=== PATIENT | female | born 1955 | race Caucasian/White ===

== ENCOUNTER 2020-06-10 10:26 | Emergency (ER) | payer OTHER ==
--- NOTE | 2020-06-10 10:44 | EDM.PDOC ---
ED HPI GENERAL MEDICAL PROBLEM - General Chief Complaint: Back Pain or Injury Stated Complaint: BACK PAIN Time Seen by Provider: 06/10/20 10:44 - History of Present Illness INITIAL COMMENTS - FREE TEXT/NARRATIVE: 65-year-old female presents the emergency room with back pain and some abdominal fullness. Patient did this on Sunday she denies any repetitive lifting or heavy lifting injuries or any potential trauma. The patient was seen in the [facility] had a urinalysis that was probably unremarkable as she is not having any symptoms but had a few bacteria trace leukocyte Estrace. She had a CBC that was normal she had a CAT scan of her abdomen because she has a history of diverticulosis and has had diverticulitis in the past. The CAT scan was done without contrast but did not show any diverticulitis did show diverticulosis. And also noted a moderate stool pattern. Patient states she is having some problems with constipation she is had firm stools lately and this morning could only pass a few gaston. Bilateral Lower Back Pain Score (Numeric/FACES): 4 - Related Data Allergies Allergy/AdvReac Type Severity Reaction Status Date / Time cefazolin Allergy Severe Hypotension Verified 06/10/20 10:42 Home Meds: Home Meds Multivitamin [Multivitamins] 1 each PO DAILY 02/15/16 [History] Ciprofloxacin [Ciprofloxacin HCl] 500 mg PO BID 06/10/20 [History] Gabapentin [Neurontin] 300 mg PO TID 06/10/20 [History] amLODIPine [Norvasc] 5 mg PO DAILY 06/10/20 [History] hydroCHLOROthiazide [Hydrochlorothiazide] 25 mg PO DAILY 06/10/20 [History] metroNIDAZOLE [Flagyl] 500 mg PO TID 06/10/20 [History] Past Medical History Respiratory History: Reports: Sleep Apnea Gastrointestinal History: Reports: Other (See Below) Other Gastrointestinal History: diverticulitis, hematochezia Genitourinary History: Reports: Other (See Below) Other Genitourinary History: cystoscopy with uretheral stents Other [employer] History: atrophic vaginitis, R breast cyst, dense breast tissue, R ovary benign neoplasm, uterine fibroid, breast biopsy, R ovary removed Musculoskeletal History: Reports: Neck Pain, Chronic Neurological History: Reports: Other (See Below) Other Neuro History: near syncope Psychiatric History: Reports: Other (See Below) Other Psychiatric History: insomnia - Past Surgical History HEENT Surgical History: Reports: Tonsillectomy GI Surgical History: Reports: Appendectomy, Colonoscopy Female Surgical History: Reports: Hysterectomy ED ROS GENERAL - Review of Systems Review Of Systems: See Below Constitutional: Reports: No Symptoms HEENT: Reports: No Symptoms Respiratory: Reports: No Symptoms Cardiovascular: Reports: No Symptoms GI/Abdominal: Reports: Abdominal Pain, Constipation. Denies: Diarrhea, Nausea, Vomiting : Reports: No Symptoms Musculoskeletal: Reports: No Symptoms Skin: Reports: No Symptoms Neurological: Reports: No Symptoms ED EXAM,LOWER BACK PAIN/INJURY - Physical Exam Exam: See Below Exam Limited By: No Limitations General Appearance: Alert, No Apparent Distress Head: Atraumatic, Normocephalic Neck: Normal Inspection, Supple, Non-Tender, Full Range of Motion Respiratory/Chest: No Respiratory Distress, Lungs Clear, Normal Breath Sounds Cardiovascular: Regular Rate, Rhythm, No Edema, No Murmur GI/Abdominal: Normal Bowel Sounds, Soft, Tender (Vague fullness no specific tenderness no rigidity rebound or guarding) Back Exam: Normal Inspection. No: CVA Tenderness (L), CVA Tenderness (R) Course - Vital Signs Last Recorded V/S: Last Vital Signs Temp 35.8 C L 06/10/20 10:30 Pulse 88 06/10/20 11:30 Resp 18 06/10/20 11:30 BP 141/98 H 06/10/20 11:30 Pulse Ox 96 06/10/20 11:30 - Orders/Labs/Meds Orders: Active Orders 24 hr Category Date Time Status KUB [Abdomen 1V Flat] [CR] Stat Exams 06/10/20 10:56 Taken - Re-Assessments/Exams Free Text/Narrative Re-Assessment/Exam: 06/10/20 11:42 I repeated plain films of her abdomen that show a fair accumulation of stool it is not striking. I discussed the situation with the patient given that she has had labs and a CT yesterday albeit without contrast, she would like to pursue conservative options. I discussed checking more lab work and potentially another CAT scan with contrast in case this is an early diverticulitis and she would like to hold off on this for now she is in agreement to trying a bottle of mag citrate to see if this moves things through. And she absolutely agrees to return to the emergency room in 24 hours if not better sooner if getting worse. We will will have her pickle pumper 2 bottles of mag citrate at the pharmacy drink 1 when she gets home repeat in 6 hours if not getting the desired effect. Departure - Departure Time of Disposition: 11:44 Disposition: Home, Self-Care 01 Clinical Impression: Abdominal pain of unknown etiology, Constipation - Discharge Information Referrals: Susan Bland MD [Primary Care Provider] - Forms: ED Department Discharge Additional Instructions: Return to the emergency room with any questions problems or worsening symptoms. If you are not better in 24 hours return to the emergency room for reevaluation. Go to your pharmacy and get 2 bottles of magnesium citrate. This works better if it is chilled or served over ice drink 1 bottle as soon as you get home repeat in 6 hours if you do not get the desired effect. If you do well with the above-mentioned therapy. Follow-up with your regular physician for recheck. And mention that you possibly had some calcifications thought to be gallstones in your gallbladder and see if a gallbladder ultrasound would be worth checking. Sepsis Event Note (ED) - Evaluation Sepsis Screening Result: No Definite Risk - Focused Exam Vital Signs: Vital Signs Temp Pulse Resp BP Pulse Ox 06/10/20 11:30 88 18 141/98 H 96 06/10/20 10:30 35.8 C L 80 16 144/82 H 95 - My Orders Last 24 Hours: My Active Orders 06/10/20 10:56 KUB [Abdomen 1V Flat] [CR] Stat - Assessment/Plan Last 24 Hours: My Active Orders 06/10/20 10:56 KUB [Abdomen 1V Flat] [CR] Stat
[2020-06-10 11:31] VITALS: BP 141/98; PULSE 88
--- NOTE | 2020-06-10 11:47 | CR ---
Abdomen: Supine view of the abdomen was obtained. Comparison: Prior CT abdomen and pelvis study of 02/25/16. Calcifications are noted within the upper right abdomen most likely due to gallstones. Bowel gas pattern is normal. Scoliosis is noted within the spine. No discrete soft tissue abnormality is appreciated. Impression: 1. Calcifications within the right upper abdomen most likely due to gallstones. 2. Mild scoliosis. No other acute finding is appreciated. Diagnostic code #3 This report was dictated in MDT
== END 2020-06-10 12:06 | disposition home or self-care (01) ==
LOC: JD.ED 10:26
DX: K59.00 Constipation, unspecified (principal); Z88.1 Allergy status to other antibiotic agents; Z79.899 Other long term (current) drug therapy
CPT/HCPCS: 74018; 74018-26; 99282; 99284

== ENCOUNTER 2025-05-20 10:06 | Day surgery (SDC) | payer MEDICARE, OTHER ==
[~2025-05-20 10:06] MED LIST: Sodium Chloride 0.9% 10 ML Syringe FLUSH PRN; Sodium Chloride 0.9% 10 ML Syringe FLUSH SCH
[2025-05-20] MEDS: Lactated Ringers 1,000 ML IV SCH (10:30)
[2025-05-20] MEDS ORDERED: propofoL 500 MG/50 ML 50 ML ONE (11:04)
[2025-05-20] MEDS ORDERED: fentaNYL 100 MCG/2 ML SDV ONE (11:39)
[2025-05-20] MEDS ORDERED: Propofol 200 MG/20 ML SDV ONE (11:43)
[2025-05-20 13:01] VITALS: BP 129/80; PULSE 78
== END 2025-05-20 12:42 | disposition home or self-care (01) ==
LOC: JD.SDS 10:06
PROVIDERS: ATTEND Surgery
DX: K52.9 Noninfective gastroenteritis and colitis, unspecified (principal); D12.5 Benign neoplasm of sigmoid colon; K62.1 Rectal polyp; K29.70 Gastritis, unspecified, without bleeding; K22.70 Barrett's esophagus without dysplasia; I11.0 Hypertensive heart disease with heart failure; I50.30 Unspecified diastolic (congestive) heart failure; D64.9 Anemia, unspecified; Z98.0 Intestinal bypass and anastomosis status; Z85.038 Personal history of other malignant neoplasm of large intestine; Z87.891 Personal history of nicotine dependence; Z79.899 Other long term (current) drug therapy
CPT/HCPCS: 43239; 45380; 88305; A9270; J2003; J2704; J3010; J7120; 00813

== ENCOUNTER 2025-05-21 03:00 | Day surgery (SDC) | payer MEDICARE, OTHER ==
[~2025-05-21 03:00] MED LIST changes: +Cefuroxime 10 MG/ML SYRINGE EYELF SCH; -Sodium Chloride 0.9% 10 ML Syringe FLUSH PRN; -Sodium Chloride 0.9% 10 ML Syringe FLUSH SCH
[2025-05-21] MEDS: Tetracaine HCl/PF 0.5% 4 ML Bottle EYEBOTH SCH (07:18)
[2025-05-21] MEDS: Lidocaine 1% PF 2 ML SDV INJECT SCH (07:18)
[2025-05-21] MEDS: Polymyxin B/Trimethoprim 10 ML Bottle EYELF SCH (07:19)
[2025-05-21] MEDS: Pilocarpine 4% Ophth Soln 15 ML Bot EYELF SCH (07:19)
[2025-05-21] MEDS: Tropicamide 1% Ophth Soln 3 ML Bottle EYELF SCH (13:08)
[2025-05-21 15:02] VITALS: BP 145/69; PULSE 78
== END 2025-05-21 15:01 | disposition home or self-care (01) ==
LOC: JD.SDS 03:00
PROVIDERS: ATTEND Ophthalmology
DX: H25.813 Combined forms of age-related cataract, bilateral (principal); H21.81 Floppy iris syndrome; H21.40 Pupillary membranes, unspecified eye; H02.834 Dermatochalasis of left upper eyelid; H02.831 Dermatochalasis of right upper eyelid; H57.813 Brow ptosis, bilateral; H43.813 Vitreous degeneration, bilateral; H40.033 Anatomical narrow angle, bilateral; I10 Essential (primary) hypertension; Z88.8 Allergy status to other drugs, medicaments and biological substances; Z79.899 Other long term (current) drug therapy
CPT/HCPCS: 66982; A9270; J3490

== ENCOUNTER 2025-06-18 12:32 | Day surgery (SDC) | payer MEDICARE, OTHER ==
[~2025-06-18 12:32] MED LIST changes: -Cefuroxime 10 MG/ML SYRINGE EYELF SCH; +Cefuroxime 10 MG/ML SYRINGE EYERT SCH
[2025-06-18] MEDS: Polymyxin B/Trimethoprim 10 ML Bottle EYERT SCH (13:07)
[2025-06-18] MEDS: Tropicamide 1% Ophth Soln 3 ML Bottle EYERT SCH (13:24)
[2025-06-18] MEDS: Tetracaine HCl/PF 0.5% 4 ML Bottle EYEBOTH SCH (14:19)
[2025-06-18] MEDS: Lidocaine 1% PF 2 ML SDV INJECT SCH (14:52)
[2025-06-18] MEDS: Pilocarpine 4% Ophth Soln 15 ML Bot EYERT SCH (15:05)
[2025-06-18 15:22] VITALS: BP 137/90; PULSE 64
== END 2025-06-18 14:15 | disposition home or self-care (01) ==
LOC: JD.SDS 12:32
PROVIDERS: ATTEND Ophthalmology
DX: H25.811 Combined forms of age-related cataract, right eye (principal); H21.81 Floppy iris syndrome; H52.31 Anisometropia; H40.031 Anatomical narrow angle, right eye; H02.834 Dermatochalasis of left upper eyelid; H02.831 Dermatochalasis of right upper eyelid; H57.813 Brow ptosis, bilateral; H43.813 Vitreous degeneration, bilateral; I10 Essential (primary) hypertension; Z96.1 Presence of intraocular lens; Z88.8 Allergy status to other drugs, medicaments and biological substances; Z79.899 Other long term (current) drug therapy
CPT/HCPCS: 66982; A9270; J2003; 00142; 99100; J3490; V2632